=== PATIENT | female | born 1985 | race Asian ===

== ENCOUNTER 2018-02-20 14:54 | Inpatient (IN) | payer OTHER ==
[2018-02-20] MEDS ORDERED: OXYTOCIN 30 UNITS/LR 1,000 ML IV (15:18)
[2018-02-20] MEDS ORDERED: CARBOPROST 250 MCG INJ IM ×2 (15:30→18:00)
[2018-02-20] MEDS ORDERED: LIDOCAINE 1% (MPF) 30 ML INJ INJ (15:30)
[2018-02-20] MEDS ORDERED: OXYTOCIN 30 UNITS/LR 500 ML IV ×3 (15:30→18:00)
[2018-02-20] MEDS ORDERED: METHYLERGONOVINE 0.2 MG INJ IM ×2 (15:30→18:00)
[2018-02-20] MEDS: OXYTOCIN 30 UNITS/LR 500 ML IV ×3 (15:34→17:46)
[2018-02-20 15:43] LABS: ADD MAN DIFF? NO
[2018-02-20 15:45] LABS: WHITE BLOOD COUNT 9.8 10^3/ul (4.8-10.8)
[2018-02-20 15:45] LABS: BASOPHILS % 0.3 % (0.0-2.0); EOSINOPHILS # 0.1 10^3/ul (0.0-0.5); EOSINOPHILS % 0.5 % (0.0-7.0); HEMATOCRIT 36.8 % (37.0-47.0); HEMOGLOBIN 11.5 g/dl (12.0-16.0); LYMPHOCYTES # 2.3 10^3/ul (0.8-2.9); LYMPHOCYTES % 23.8 % (15.0-51.0); MEAN CORPUSCULAR HEMOGLOBIN 23.9 pg (29.0-33.0); MEAN CORPUSCULAR HGB CONC 31.3 g/dl (32.0-37.0); MEAN CORPUSCULAR VOLUME 76.5 fl (82.0-101.0); MEAN PLATELET VOLUME 10.3 fl (7.4-10.4); MONOCYTE # 0.8 10^3/ul (0.3-0.9); MONOCYTES % 7.7 % (0.0-11.0); NEUTROPHIL # 6.6 10^3/ul (1.6-7.5); NEUTROPHILS % 67.1 % (39.0-77.0); PLATELET COUNT 246 10^3/UL (140-415); RED BLOOD COUNT 4.81 10^6/ul (4.20-5.40); RED CELL DISTRIBUTION WIDTH 12.9 % (11.5-14.5)
[2018-02-20 16:05] LABS: INR 1.02; PARTIAL THROMBOPLASTIN TIME 31.7 Sec (23.0-35.0); PROTIME 13.5 Sec (11.9-14.9); PT RATIO 1.1
[2018-02-20] MEDS: MISOPROSTOL 200 MCG TAB PR (17:01)
[2018-02-20 17:30] LABS: HEPATITIS B SURFACE ANTIGEN NEGATIVE (NEGATIVE)
[2018-02-20] MEDS ORDERED: ZOLPIDEM 5 MG TAB PO (18:00)
[2018-02-20] MEDS ORDERED: OXYCODONE/ASPIRIN (4.88/325) TAB PO ×2 (18:00)
[2018-02-20] MEDS ORDERED: ACETAMINOPHEN 325 MG TAB PO (18:00)
[2018-02-20] MEDS ORDERED: MISOPROSTOL 200 MCG TAB PR (18:00)
[2018-02-20] MEDS ORDERED: LANOLIN HPA 1 PKT TOP (18:00)
[2018-02-20] MEDS ORDERED: WITCH HAZEL/GLYCERIN PAD PR (18:00)
[2018-02-20] MEDS ORDERED: METHYLERGONOVINE 0.2 MG TAB PO (18:00)
[2018-02-20] MEDS ORDERED: BENZOCAINE 20% 56 ML SPRAY TOP (18:00)
[2018-02-20] MEDS: IBUPROFEN 600 MG TAB PO ×2 (19:19→23:36)
[2018-02-20] MEDS: PIPER-TAZO 3.375 GM IV (PMX) 100 ML IVPB (20:59)
[2018-02-20] MEDS: SENNA/DOCUSATE NA (8.6MG/50MG) TAB PO (21:00)
[2018-02-20] MEDS: LACTATED RINGER'S 1,000 ML IV (21:04)
[2018-02-21] MEDS: PIPER-TAZO 3.375 GM IV (PMX) 100 ML IVPB ×3 (02:12→17:43)
[2018-02-21] MEDS: LACTATED RINGER'S 1,000 ML IV ×3 (05:30→15:12)
[2018-02-21] MEDS: IBUPROFEN 600 MG TAB PO ×4 (06:09→23:46)
[2018-02-21] MEDS: SENNA/DOCUSATE NA (8.6MG/50MG) TAB PO ×2 (08:47→21:00)
[2018-02-21 08:52] LABS: ADD MAN DIFF? NO
[2018-02-21 09:25] LABS: WHITE BLOOD COUNT 9.8 10^3/ul (4.8-10.8)
[2018-02-21 09:25] LABS: BASOPHILS % 0.2 % (0.0-2.0); EOSINOPHILS % 0.3 % (0.0-7.0); HEMATOCRIT 30.8 % (37.0-47.0); HEMOGLOBIN 9.7 g/dl (12.0-16.0); LYMPHOCYTES # 1.8 10^3/ul (0.8-2.9); LYMPHOCYTES % 18.8 % (15.0-51.0); MEAN CORPUSCULAR HEMOGLOBIN 24.1 pg (29.0-33.0); MEAN CORPUSCULAR HGB CONC 31.5 g/dl (32.0-37.0); MEAN CORPUSCULAR VOLUME 76.4 fl (82.0-101.0); MONOCYTE # 0.7 10^3/ul (0.3-0.9); MONOCYTES % 7.1 % (0.0-11.0); NEUTROPHIL # 7.1 10^3/ul (1.6-7.5); NEUTROPHILS % 72.9 % (39.0-77.0); PLATELET COUNT 187 10^3/UL (140-415); RED BLOOD COUNT 4.03 10^6/ul (4.20-5.40); RED CELL DISTRIBUTION WIDTH 12.9 % (11.5-14.5)
[2018-02-21] MEDS: GUAIFENESIN/DM 5ML CUP PO (15:11)
[2018-02-21 15:41] LABS: RAPID PLASMA REAGIN REACTIVE (NR)
[2018-02-22] MEDS: PIPER-TAZO 3.375 GM IV (PMX) 100 ML IVPB (02:06)
[2018-02-22] MEDS: LACTATED RINGER'S 1,000 ML IV (05:30)
[2018-02-22] MEDS: IBUPROFEN 600 MG TAB PO ×2 (06:00→12:04)
[2018-02-22 07:09] LABS: ADD MAN DIFF? NO
[2018-02-22 07:11] LABS: BASOPHIL # 0.1 10^3/ul (0.0-0.1); BASOPHILS % 0.6 % (0.0-2.0); EOSINOPHILS # 0.3 10^3/ul (0.0-0.5); HEMOGLOBIN 9.7 g/dl (12.0-16.0); LYMPHOCYTES % 22.2 % (15.0-51.0); MEAN CORPUSCULAR HEMOGLOBIN 23.7 pg (29.0-33.0); MEAN CORPUSCULAR HGB CONC 30.3 g/dl (32.0-37.0); MEAN CORPUSCULAR VOLUME 78.2 fl (82.0-101.0); MEAN PLATELET VOLUME 10.5 fl (7.4-10.4); MONOCYTE # 0.6 10^3/ul (0.3-0.9); MONOCYTES % 7.3 % (0.0-11.0); NEUTROPHIL # 5.8 10^3/ul (1.6-7.5); NEUTROPHILS % 66.2 % (39.0-77.0); PLATELET COUNT 197 10^3/UL (140-415); RED BLOOD COUNT 4.09 10^6/ul (4.20-5.40); RED CELL DISTRIBUTION WIDTH 13.2 % (11.5-14.5)
[2018-02-22 07:11] LABS: WHITE BLOOD COUNT 8.8 10^3/ul (4.8-10.8)
[2018-02-22] MEDS: SENNA/DOCUSATE NA (8.6MG/50MG) TAB PO (08:52)
[2018-02-22] MEDS: DIPHTH/TET/ACEL PERTUSS (ADULT) 0.5 ML VIAL IM* (09:00)
[2018-02-26 16:01] LABS: FLUORESCENT TREPONEMAL AB REACTIVE (NON-REACTIVE)
== END 2018-02-22 15:10 | disposition home or self-care (01) | DRG 807 ==
LOC: OBT 14:54 → L-D 14:55 → OBT 14:55 → L-D 15:01 → PP1 17:41
PROVIDERS: Obstetrics & Gynecology
PROC: 10E0XZZ Delivery of Products of Conception, External Approach (ICD-10-PCS; principal; 2018-02-20)
PROC: 3E033VJ Introduction of Other Hormone into Peripheral Vein, Percutaneous Approach (ICD-10-PCS; 2018-02-20)
DX: O60.14X0 Preterm labor third trimester with preterm delivery third trimester, not applicable or unspecified (principal); Z37.0 Single live birth; Z3A.35 35 weeks gestation of pregnancy
CPT/HCPCS: 85025; 85610; 85730; 86592; 86850; 86870; 86900; 86901; 86902; 87040; 87340; 99464